=== PATIENT | female | born 1985 | race Caucasian/White ===

== ENCOUNTER 2016-12-08 17:21 | Inpatient (IN) | payer MEDICAID ==
[2016-12-08] VITALS (7 sets, daily range): BP systolic 113–142; BP diastolic 64–98
[~2016-12-08] VITALS: Ht 170.2 cm; Wt 98.0 kg
[~2016-12-08 17:21] MED LIST: PNV11TAB PO
[2016-12-08] MEDS ORDERED: FERR325T36 PO (18:08)
[2016-12-08] MEDS ORDERED: CALCIUM CARBONATE CHEWABLE 300 MG (TUMS) TABLET PO PRN ×2 (18:20→18:30)
[2016-12-08] MEDS ORDERED: SODIUM CHLORIDE FLUSH 10 ML SYR IV PRN ×2 (18:20→18:30)
[2016-12-08] MEDS ORDERED: OXYTOCIN INJ 20 UNIT in NS 1000ml 1,000 ML IV PRN ×2 (18:20→18:30)
[2016-12-08] MEDS ORDERED: LIDOCAINE PF 1% (XYLOCAINE) 2 ML VIAL INJ ONE (18:24)
[2016-12-08] MEDS ORDERED: SODIUM CHLORIDE FLUSH 10 ML ONE (18:25)
--- OUTSIDE RECORDS SUMMARY | 2016-12-08 18:30 | XMS REPORT | Continuity of Care Document ---
Author Author Ewa Mcneil Address Unknown Phone Unavailable Care Team Providers Care [employer] Name Role Phone [employer] Unavailable Unavailable Problems Problem Status Onset Date Classification Date Reported Comments Source Orthostatic hypotension (disorder) 10/30/2015 Diagnosis 11/03/2015 [facility] Dizziness (finding) 2015 Diagnosis 11/03/2015 [facility] Care History of - psychiatric disorder (context-dependent category) 10/30/2015 Diagnosis 11/03/2015 [facility] Dyspnea (finding) 2015 Diagnosis 11/03/2015 [facility] Other malaise and fatigue Diagnosis 03/30/2014 [facility] Esophageal reflux 2013 Diagnosis 03/30/2014 [facility] Gastroesophageal reflux disease (disorder) Active Problem 03/30/2014 [facility] Medications Medication Details Route Status Patient Instructions Ordering Provider Order Date Source No Known Medications No known medications Active [facility] Allergies, Adverse Reactions, Alerts Substance Category Reaction Severity Reaction type Status Date Reported Comments Source Adhesive Assertion Pruritic rash (disorder) Allergy to substance [facility] penicillins Assertion Drug allergy [facility] Omeprazole Assertion Drug allergy [facility] sulfa drugs Assertion Drug allergy [facility] Immunizations Immunization Date Given Site Status Last Updated Comments Source No data available for this section No data available for this section [facility] Results Vital Signs Encounters Location Location Details Encounter Type Encounter Number Reason For Visit Attending Provider ADM Date DC Date Status Source [facility] [id number] Kady Doherty 03/26/2014 03/27/2014 [facility] [id number] Camilo Miranda 10/30/2015 10/31/2015 [facility] Procedures Procedure Code Date Perfomer Comments Source No data available for this section [facility] Plan of Care Social History Assessment and Plan Family History Value Date Source Advance Directives Order Name Results Value Date Source
[2016-12-08 19:11] LABS: MEAN CORPUSCULAR HGB CONC 34.1 g/dL (31.0-37.0); MEAN PLATELET VOLUME 11.1 FL (6.0-9.5); WHITE BLOOD COUNT 10.3 10^3uL (4.0-11.0)
[2016-12-08 19:15] LABS: MEAN CORPUSCULAR HEMOGLOBIN 32.6 PG (26.0-34.0)
--- NOTE | 2016-12-08 20:48 | History and Physical (E) ---
History & Physical (OB) Subjective: CC: My water broke HPI: 31 y/o at 38 5/7 weeks EGA based on 8 weeks US presenting with SROM. Not feeling any contractions. + movement PNC: Initiated with Dr Figueroa at 8 weeks, transferred to my care at 18 weeks. Complicated by anemia (treated with iron supplementation) OB Hx: none PMHx: Intolerance of a number of meds with GI upset or dizziness. Doesn't remember which medicines she reacted to except that she is sure that she had low blood pressure with guanfacine. No hospitalizations PSHx: [place] tooth extractions Allergies: Coded Allergies: latex (Verified Allergy, Mild, Rash, 12/08/16) Sulfa (Sulfonamide Antibiotics) (Unverified Adverse Reaction, Unknown, ) Not actually sure if she ever took sulfa. Never had anaphylaxis Uncoded Allergies: PCN (Adverse Reaction, Unknown, 12/08/16) Never took PCN but family has history of PCN reaction, so it's been avoided. Home Medications: Reported Medications Ferrous Sulfate (Iron)325 Mg [id number] Mg PO DAILY 12/08/16 [id number]/Iron Fumarate/Fa/Dss ( 19 Tablet)1 Each Tablet1 Each PO DAILY 07/06/16 Objective: Vital Signs Date Time Temp Pulse Resp B/P Pulse Ox O2 Delivery O2 Flow Rate FiO2 12/08/16 19:45 98.5 79 16 137/96 Laboratory Results Past 24 Hrs 12/08/16 17:54: Membranes Rupture (PAMG-1) Positive 12/08/16 19:00: Hematocrit 34.90, Hemoglobin 11.9, Mean Corpuscular Hemoglobin 32.6, Mean Corpuscular Hemoglobin Concent 34.1, Mean Corpuscular Volume 96, Mean Platelet Volume 11.1, Platelet Count 194, Red Blood Count 3.65, Red Cell Distribution Width 12.8, White Blood Count 10.30 General: Alert and oriented, NAD Chest: CTA Abdomen: Gravid. [place] showed vertex position Cardiovasular: RRR, No murmur Extremities: No edema FHT's: 130's , moderate LTV. + Accels. No decels Cx: Closed, thick. Very high [place]: Ctx's Q 2-4 minutes, not felt by patient Screenings: Blood type: O Positive, Rubella Immune, RPR non-reactive, HBV Negative, HIV Negative , GBS Negative. Problems/Plans: (1) Spontaneous rupture of amniotic membranes Assessment & Plan: Admitted for monitoring with plans for augmentation if required. Discussed with patient and family. Will check cervix at 5 hours post rupture and plan cytotec if needed for cervical ripening. Pt is requesting minimal intervention and does not wish for epidural anesthesia. I advised patient that IVF will be required if medications are needed. Encouraged change of position as she is already having bothersome back pain. Pt going to try to sleep instead. (2) 38 weeks gestation of (3) Latex sensitivity Assessment & Plan: Pt reports topical sensitivity to condoms but has never had reaction to cutaneous exposure and has never had any difficulty with breathing or swallowing with exposure. Will use only latex-free products. Additional Copies to: End of Report . NATY AKHTAR MD Dec 08, 2016 20:48
[2016-12-08] MEDS ORDERED: MISOPROSTOL 25 MCG (CYTOTEC) TABLET PV ONE (23:05)
[2016-12-09] VITALS (44 sets, daily range): BP systolic 83–140; BP diastolic 35–90
[2016-12-09] MEDS ORDERED: MISOPROSTOL 50 MCG PV ONE (02:10)
[2016-12-09] MEDS ORDERED: ROPIVACAINE 1% 10 MG/ML (NAROPIN) 20 ML AMPUL ONE ×3 (07:56→12:51)
[2016-12-09] MEDS ORDERED: OXYTOCIN INJ 20 UNIT in NS 1000ml 1,000 ML IV ONE (08:20)
[2016-12-09] MEDS ORDERED: SODIUM CHLORIDE VIAL (PF) 10 ML IV ONE (08:36)
[2016-12-09 10:52] LABS: BILIRUBIN,URINE Negative (Negative); CLARITY,URINE Clear; COLOR,URINE Yellow; GLUCOSE, URINE (UA) Negative (Negative); LEUKOCYTE ESTERASE ,URINE Negative (Negative); UROBILINOGEN,URINE 0.2 mg/dL (0.2-1.0)
--- NOTE | 2016-12-09 11:58 | History and Physical (E) ---
OB History & Physical Update I have reviewed the H&P and there are no changes. Repeat exam is unchanged except that cervix is 5/100/0, vtx. FHT's 140's now with moderate variability. Previously had recurrent late decels but that now improved with cessation of pitocin, administration of oxygen, change of position and IV bolusing. Patient comfortable with epidural in place. A/P: Term IUP, active labor, SROM, s/p 2 doses cytotec, then pitocin augmentation. Now with good progress but with recurrent decels requiring cessation of pitocin. Pt and family apprised of situation and potential need for delivery if fetus not tolerating labor or if progress not made without pitocin augmentation. NATY AKHTAR MD Dec 09, 2016 11:58
--- NOTE | 2016-12-09 12:11 | Progress Note (E) ---
Progress Note S: Comfortable with epidural O: Cx: 6/100/0 vtx FHT's 130's. moderate LTV. + Accels. No decels with last 2 contractions. [place]: Ctx's Q 3-6 min A/P: Progress in spite of no pitocin augmentation. Monitoring closely. NATY AKHTAR MD Dec 09, 2016 12:11
[2016-12-09] MEDS ORDERED: TERBUTALINE 1 MG/ML (BRETHINE) 1 ML AMP SC ONE (12:32)
[2016-12-09] MEDS ORDERED: ceFAZolin 1000 MG (ANCEF) VIAL ONE (12:34)
[2016-12-09] MEDS ORDERED: TERBUTALINE 1 MG/ML (BRETHINE) 1 ML AMP ONE (12:35)
[2016-12-09] MEDS ORDERED: ceFAZolin 2,000 MG in SODIUM CHLORIDE VIAL (PF) 20 ML IV SCH (12:35)
[2016-12-09] MEDS ORDERED: POT BICARB/SOD BICARB/CIT AC (ALKA-SELTZER GOLD) 1 TABLET.EFF PO SCH (12:41)
[2016-12-09] MEDS ORDERED: METOCLOPRAMIDE 10 MG/2 ML (REGLAN) VIAL IV SCH (12:41)
--- NOTE | 2016-12-09 12:41 | Progress Note (E) ---
Progress Note S: Comfortable O: Cx: 6/100/0 Vtx FHT's Recurrence of late decels but with good variability in spite of IV bolus, position change, oxygen administration [place]: Ctx's Q 4-6 min A/P: intolerance of labor. Decision for c section. Discussed with all parties. All in agreement. Consent obtained. Dr Cox notified. Stated family history of penicillin allergy but has not personally had penicillin products. Ancef to be given. Latex allergy: Will continue to avoid latex in the OR. Anxious. Avoid meds until delivery. NATY AKHTAR MD Dec 09, 2016 12:41
[2016-12-09] MEDS ORDERED: morphine PF 0.5 MG/ML (DURAMORPH) 10 ML VIAL IV ONE (12:51)
[2016-12-09 13:10] LABS: ANION GAP 10.1 MEQ/L (3-15)
[2016-12-09] MEDS ORDERED: OXYTOCIN 10 UNIT/ML (PITOCIN) 1 ML VIAL ONE ×2 (13:19→13:40)
[2016-12-09] MEDS ORDERED: ePHEDrine SULFATE 50 MG/ML 1 ML AMP ONE (14:10)
[2016-12-09] MEDS ORDERED: ARTIFICIAL TEARS (REFRESH) OPHTHALMIC DROPS OU PRN (14:45)
[2016-12-09] MEDS ORDERED: LANOLIN OINTMENT 28 GM TUBE TOP PRN (15:30)
[2016-12-09] MEDS ORDERED: NALOXONE 0.4 MG/ML (NARCAN) 1 ML VIAL IV PRN ×2 (16:25)
[2016-12-09] MEDS ORDERED: ONDANSETRON 2 MG/ML (Z0FRAN) 2 ML VIAL IV PRN (16:25)
[2016-12-09] MEDS ORDERED: diphenhydrAMINE 25 MG (BENADRYL) TABLET PO PRN (16:25)
[2016-12-09] MEDS ORDERED: diphenhydrAMINE 50 MG/ML INJ (BENADRYL) IM PRN (16:25)
[2016-12-09] MEDS ORDERED: NALBUPHINE 10 MG/ML (NUBAIN) 1 ML AMP IV PRN ×2 (16:25)
[2016-12-09] MEDS ORDERED: diphenhydrAMINE 50 MG (BENADRYL) CAPSULE PO PRN (16:25)
[2016-12-09] MEDS: diphenhydrAMINE 50 MG/ML INJ (BENADRYL) IV PRN ×2 (17:00→20:19)
[2016-12-09] MEDS ORDERED: OXYTOCIN INJ 20 UNIT in NS 1000ml 1,000 ML IV SCH (17:15)
--- NOTE | 2016-12-09 18:28 | NUR ---
1814-Dangled with 2 assist on side of bed. Backrub given. Assisted back to bed and clear liquid tray given for supper. and baby remain at bedside.
[2016-12-09] MEDS: IBUPROFEN 600 MG (MOTRIN) TAB PO SCH (19:54)
[2016-12-09] MEDS: oxyCODONE/ACETAMINOPHEN 5MG-325 MG (PERCOCET) TABLET PO PRN (21:10)
[2016-12-09] MEDS: DOCUSATE SODIUM 100 MG (COLACE) CAP PO SCH (22:40)
[2016-12-10 00:35] VITALS: BP 116/74
[2016-12-10] MEDS: IBUPROFEN 600 MG (MOTRIN) TAB PO SCH ×5 (02:02→20:26)
[2016-12-10] MEDS: oxyCODONE/ACETAMINOPHEN 5MG-325 MG (PERCOCET) TABLET PO PRN ×4 (04:25→21:48)
[2016-12-10 04:30] VITALS: BP 114/59
[2016-12-10 07:10] LABS: MEAN CORPUSCULAR HGB CONC 33.9 g/dL (31.0-37.0); MEAN PLATELET VOLUME 10.9 FL (6.0-9.5); WHITE BLOOD COUNT 11.11 10^3uL (4.0-11.0)
[2016-12-10 07:12] LABS: MEAN CORPUSCULAR HEMOGLOBIN 32.7 PG (26.0-34.0)
[2016-12-10 08:00] VITALS: BP 104/68
--- NOTE | 2016-12-10 11:45 | OPERATIVE REPORT ---
DATE OF OPERATION: 12/09/2016 PRE-OPERATIVE DIAGNOSIS: Term with shoulder range of motion and cephalopelvic disproportion. POST-OPERATIVE DIAGNOSIS: 1. Term with shoulder range of motion and cephalopelvic disproportion. 2. Delivery of viable male infant. PROCEDURE: Low transverse uterine section SURGEON: Ahsan Cox MD EXTRACTIONS TECHNOLOGIST: Trisha Smith MD ANESTHESIA: Epidural DESCRIPTION: The patient is a 31-year-old who presented as a primigravida with spontaneous rupture of membranes. She had inadequate labor, so the labor was augmented, first with Cytotec, and then with IV Pitocin. She dilated to 5 to 6 cm and then had evidence of some distress with late decelerations and loss of reactivity. Resuscitative measures were taken and the decision was made to proceed with section. The patient was taken to the OB/OR after receiving Ancef for preop antibiotic prophylaxis. She had a Quiñonez catheter placed. The usual abdominal scrubs, preps and drapes were applied and a Pfannenstiel skin incision was created. This was carried down through the fascia, which was entered bilaterally at midline and fascial flaps were reflected superiorly and inferiorly. At this point, the midline was identified and entered bluntly with hemostats. The peritoneum was entered with Ruby scissors. Care was taken to avoid the bladder. The bladder blade was placed for exposure whereupon the lower uterine segment was identified and the serosa was skeletonized. At this point, a low transverse uterine incision was created with the scalpel. There is a small amount of amniotic fluid, which was returned. The head was identified in a somewhat asynclitic orientation with the occiput near the somewhat oblique oriented to the posterior left lateral position. The right ear was present upon uterotomy. The head was delivered with no difficulty. The infant was then delivered in total with no difficulty. The cord was clamped, cut and infant passed off for evaluation. The placenta was manually delivered. Pitocin was added to IV solution. The uterine repair was performed with #0 Vicryl in a running locking manner with an overlying imbricating layer good hemostasis achieved. At this point the uterus was replaced after clearing the abdominal cavity from blood and clots. The anterior peritoneum was then closed with 2-0 Vicryl. The fascia was closed with #0 Vicryl. The skin edges were closed with surgical dorinda. All layers were hemostatic prior to closure and the was taken to room with father in good condition. Mother is in good condition while leaving the OR.
[2016-12-10 12:00] VITALS: BP 110/60
[2016-12-10 20:09] VITALS: BP 126/80
[2016-12-10] MEDS: DOCUSATE SODIUM 100 MG (COLACE) CAP PO SCH (21:41)
[2016-12-11] MEDS: oxyCODONE/ACETAMINOPHEN 5MG-325 MG (PERCOCET) TABLET PO PRN ×5 (01:57→23:50)
[2016-12-11] MEDS: IBUPROFEN 600 MG (MOTRIN) TAB PO SCH ×5 (02:40→21:30)
[2016-12-11 08:00] VITALS: BP 128/90
[2016-12-11 20:06] VITALS: BP 120/78
[2016-12-11] MEDS: DOCUSATE SODIUM 100 MG (COLACE) CAP PO SCH (21:08)
[2016-12-12] MEDS: IBUPROFEN 600 MG (MOTRIN) TAB PO SCH ×3 (03:38→15:14)
[2016-12-12] MEDS: oxyCODONE/ACETAMINOPHEN 5MG-325 MG (PERCOCET) TABLET PO PRN ×3 (06:18→18:14)
[2016-12-12] MEDS ORDERED: IBUP-1772 PO (09:57)
[2016-12-12] MEDS ORDERED: OXYC1TAB87 PO (10:21)
[2016-12-12 11:32] VITALS: BP 115/85
--- NOTE | 2016-12-12 11:45 | NUR ---
dorinda removed per protocol; steri strips applied with mastasol per order. pt tolerated well.
--- NOTE | 2016-12-12 16:10 | DISCHARGE SUMMARY ---
ADMISSION DATE: 12/08/2016 DISCHARGE DATE: 12/12/2016 ADMISSION DIAGNOSIS: DISCHARGE DIAGNOSIS: 1. 38 days and 5/7 weeks intrauterine . 2. Spontaneous rupture of membranes. 3. intolerance of labor. 4. Delivery of viable male infant. PROCEDURES: On 12/09/2016 low transverse uterine section through Pfannenstiel skin incision. HISTORY: Marci is a 31-year-old primigravida who had spontaneous rupture of membranes during the day of 12/08/2016. She presented the afternoon of 12/08/2016. She was nondilated so Cytotec initially was used under the care of Dr. Smith her primary care obstetric provider. She was then converted to Pitocin on 12/09/2016. Had progression up to mid-dilatation but then had intolerance of labor with late decelerations, loss of reactivity. The decision was made to proceed with operative delivery and I was contacted. Discussed section delivery with Marci and her and she was then taken to the OR where a section was accomplished through Pfannenstiel skin incision and low transverse uterine incision. At the time of the delivery the male was in a transverse vertex lie with a ANN vertex presentation. There was some evidence of CPD from this. Postoperatively though, Marci did very well with rapid advance in diet and activities. She had good pain control, rapid advancement of diet, and activity. Pain was controlled with ibuprofen and Percocet. On her third postop day she is in stable condition for dismissal. Dismissed to home. LABORATORY: The patient's blood type is O +. Hemoglobin at preoperative 11.9 dropped to 10.0 postoperatively. DISPOSITION: The patient is dismissed to home. She is to follow up with me in 1 week for incision check and Dr. Smith for 6 week check. She is given routine postoperative section activity instructions and general care and instructions. Her diet will be a regular diet. Tara will be removed with Steri-Strips applied prior to dismissal. She understands instructions and was dismissed. DISCHARGE MEDICATIONS: 1. Ibuprofen 600 mg every 6 hours as needed for pain relief. 2. Percocet 5/325 one every 4 hours as needed for pain. 3. #30 vitamins once daily. 4. May use over the counter Colace.
--- NOTE | 2016-12-12 19:11 | NUR ---
1900 Discharge instructions reviewed with pt, who denies questions at this time. Advised her to call any time with future questions. Security bands collected and matched. Pt ambulated to the OB doors, then rode in wheelchair to the the ER entrance, while her carried the infant secured in infant car seat and staff. Family left in private vehicle.
== END 2016-12-12 19:00 | disposition home or self-care (01) | DRG 766 ==
LOC: EEVIPCON → EUOP 17:21 → OB 17:27 → EEVIPCON 18:15 → OB 18:15 → EUOP 18:24 → OB 12-09 13:27
PROVIDERS: ADMIT Family Medicine; ATTEND Family Medicine
PROC: 10D00Z1 Extraction of Products of Conception, Low, Open Approach (ICD-10-PCS; principal; 2016-12-09)
DX: O65.8 Obstructed labor due to other maternal pelvic abnormalities (principal); O76 Abnormality in fetal heart rate and rhythm complicating labor and delivery; O99.02 Anemia complicating childbirth; D64.9 Anemia, unspecified; Z91.040 Latex allergy status; Z3A.38 38 weeks gestation of pregnancy; Z37.0 Single live birth
CPT/HCPCS: 36415; 59510; 80048; 81003; 84112; 85014; 85018; 85027; 85610; 85730; 86850; 86900; 86901; 94762; 99202

== ENCOUNTER → 2016-12-28 | Outpatient (CLI) | payer MEDICAID ==
[~2016-12-28] MED LIST changes: +FERR325T36 PO; +IBUP-1772 PO; +OXYC1TAB87 PO
== END ==
LOC: EUOP 13:55
PROVIDERS: ATTEND Family Medicine
DX: Z53.9 Procedure and treatment not carried out, unspecified reason (principal)